=== PATIENT | male | born 1980 | race Two or more races ===

== ENCOUNTER 2017-02-05 16:08 | Emergency (ER) | payer BC ==
[2017-02-05 16:31] LABS: % BASOPHILS 0.4 % (0.0-2.0); % EOSINOPHILS 2.6 % (0.0-5.0); % LYMPHOCYTES 22.3 % (20.0-50.0); % MONOCYTES 8.3 % (2.0-10.0); % NEUTROPHILS 66.4 % (40.0-80.0); HEMATOCRIT 43.4 % (39.0-49.0); HEMOGLOBIN 14.5 gm/dL (13.2-17.3); MEAN CELL VOLUME 91.5 fl (80-99); MEAN CORPUSCULAR HEMOGLOBIN 30.5 pg (26.0-30.0); MEAN CORPUSCULAR HGB CONC 33.4 pg (28.0-36.0); MEAN PLATELET VOLUME 9.8 fl; NEUTROPHILE ABSOLUTE 5.2 Th/cmm (1.8-8.0); PLATELET COUNT 184 Th/cmm (150-400); RED BLOOD COUNT 4.74 Mil/cmm (4.30-5.70); RED CELL DISTRIBUTION WIDTH 12.5 % (11.5-20.0); WHITE BLOOD COUNT 7.9 Th/cmm (4.8-10.8)
[2017-02-05 16:34] LABS: ABG SOURCE Arterial; BE(B) 0.3 mEq/L (-3.0-3.0); FIO2 21; HCO3 25.1 mEq/L (20.0-26.0); pH 7.42 (7.35-7.45)
[2017-02-05 16:35] LABS: CRITICAL VALUES REPORTED BY SH
[2017-02-05 16:46] LABS: ALB/GLOB RATIO 1.5 (1.0-1.8); ALKALINE PHOSPHATASE 77 U/L (34-104); ANION GAP 8.6 (7.0-16.0); BILIRUBIN,TOTAL 0.4 mg/dL (0.3-1.0); BUN - UREA NITROGEN 16 mg/dL (7-25); CALCIUM SERUM 9.6 mg/dL (8.6-10.3); CARBON DIOXIDE 21.7 mEq/L (21.0-31.0); CHLORIDE 107 mEq/L (98-107); GLUCOSE 103 mg/dL (70-105); POTASSIUM SERUM 4.3 mEq/L (3.5-5.1); SGOT 22 U/L (13-39); SGPT/ALT 27 U/L (7-52); SODIUM SERUM 133 mEq/L (136-145)
[2017-02-05 16:47] LABS: CHOLESTEROL 192 mg/dL (<200); TRIGLYCERIDES 302 mg/dL (<150)
[2017-02-05 17:16] LABS: URINE BILIRUBIN NEGATIVE (NEGATIVE); URINE COLOR YELLOW; URINE GLUCOSE (UA) NEGATIVE (NEGATIVE); URINE KETONE NEGATIVE (NEGATIVE)
[2017-02-05 17:17] LABS: URINE BACTERIA OCCASIONAL /hpf (NONE SEEN); URINE BLOOD SMALL (NEGATIVE); URINE EPITHELIAL CELLS RARE /lpf (FEW); URINE PROTEIN NEGATIVE (NEGATIVE); URINE UROBILINOGEN 0.2 E.U./dL (0.2 - 1.0); URINE WBC 0-2 /hpf (0-5)
[2017-02-05] MEDS ORDERED: Albuterol/Ipratropium Neb 3 ML AERS HHN ONE (17:29)
[2017-02-05] MEDS: Albuterol/Ipratropium Neb 3 ML AERS HHN ONE (17:30)
--- NOTE | 2017-02-05 17:31 | ED Physician Chart ---
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 HE DENIES ASTHMA, PNEUMONIA AND BRONCHITIS. HE IS NOT A SMOKER BUT DRINKS ON OCCASION. HE DENIES HAVING ANY SERIOUS MEDICAL PROBLEMS. HE DENIES FEVER AND SORE THROAT BUT ADMITS TO CHEST CONGESTION AND COUGH. Allergies:: Allergies Allergy/AdvReac Type Severity Reaction Status Date / Time No Known Allergies Allergy Verified 02/05/17 16:20 Vitals:: Vital Signs - 8 hr 02/05/17 16:21 Temp 97.9 F HR 64 RR 15 BP 114/65 O2 Sat % 95 Historian:: Patient Review:: Nurse's Note Reviewed Review of Systems - Review of Systems General/Constitutional: No fever, No chills, No weight loss, No weakness, No diaphoresis, No edema, No loss of appetite Skin: No skin lesions, No rash, No bruising Head: No headache, No light-headedness Eyes: No loss of vision, No pain, No diplopia ENT: No earache, No nasal drainage, No sore throat, No tinnitus Neck: No neck pain, No swelling, No thyromegaly, No stiffness, No mass noted Cardio Vascular: No chest pain, No palpitations, No PND, No orthopnea, No edema Pulmonary: SOB, Cough, No sputum, Wheezing GI: Nausea, No vomiting, No diarrhea, No pain, No melena, No hematochezia, No constipation, No hematemesis G/U: No dysuria, No frequency, No hematuria Musculoskeletal: No bone or joint pain, No back pain, No muscle pain Endocrine: No polyuria, No polydipsia Psychiatric: No prior psych history, No depression, No anxiety, No suicidal ideation Hematopoietic: No bruising, No lymphadenopathy Allergic/Immuno: No urticaria, No angioedema Neurological: No syncope, No focal symptoms, No weakness, No paresthesia, No headache, No seizure, No dizziness, No confusion, No vertigo Past Medical History - Past Medical History Obtainable: Yes Past Medical History: No significant medical hx Family History: None Social History: Non Smoker, No Alcohol, No Drug Use Surgical History: None Psychiatricy History: None Medication: Reviewed Family Medical History - Family Member Mother History Unknown: Yes Physical Exam - Physical Examination General/Constitutional: Awake, Well-developed, well-nourished, Alert, No distress, GCS 15, Non-toxic appearing, Ambulatory Head: Atraumatic Eyes: Lids, conjuctiva normal, PERRL, EOMI Skin: Nl inspection, No rash, No skin lesions, No ecchymosis, Well hydrated, No lymphadenopathy ENMT: External ears, nose nl, Nasal exam nl, Lips, teeth, gums nl Neck: Nontender, Full ROM w/o pain, No JVD, No nuchal rigidity, No bruit, No mass, No stridor Respiratory: Nl effort/Exclusion Other Respiratory comments:: THERE ARE RHONCHI HEARD BILATERALLY Cardio Vascular: RRR, No murmur, gallop, rubs, NL S1 S2 GI: No tenderness/rebounding/guarding, No organomegaly, No hernia, Normal BS's, Nondistended, No mass/bruits, No McBurney tenderness : No CVA tenderness Extremities: No tenderness or effusion, Full ROM, normal strength in all extremities, No edema, Normal digits & nails Neuro/Psych: Alert/oriented, DTR's symmetric, Normal sensory exam, Normal motor strength, Judgement/insight normal, Mood normal, Normal gait, No focal deficits Misc: normal gait, Normal back, No paraspinal tenderness Labs/Radiology/EKG Results - Lab Results Results: Laboratory Tests 02/05/17 02/05/17 02/05/17 16:13 16:23 16:23 WBC 7.9 RBC 4.74 Hgb 14.5 Hct 43.4 MCV 91.5 MCH 30.5 H MCHC Differential 33.4 RDW 12.5 Plt Count 184 MPV 9.8 Neutrophils % 66.4 Lymphocytes % 22.3 Monocytes % 8.3 Eosinophils % 2.6 Basophils % 0.4 Specimen Source Arterial Sample Site RB pH 7.42 pCO2 38.0 pO2 71.0 L HCO3 25.1 Base Excess 0.3 O2 Saturation 94.0 Jhonathan Test NA Vent Rate NA Inspired O2 21 Tidal Volume NA PEEP NA Pressure (ins/psv/peep) NA Critical Value SH Sodium Potassium Chloride Carbon Dioxide Anion Gap BUN Creatinine Est GFR ( Amer) Est GFR (Non-Af Amer) BUN/Creatinine Ratio Glucose Calcium Total Bilirubin AST ALT Alkaline Phosphatase Troponin I Total Protein Albumin Globulin Albumin/Globulin Ratio Triglycerides 302 H Cholesterol 192 LDL Cholesterol Direct 136 HDL Cholesterol 40 Urine Source Urine Color Urine Clarity Urine pH Ur Specific [place] Urine Protein Urine Glucose (UA) Urine Ketones Urine Blood Urine Nitrate Urine Bilirubin Urine Urobilinogen Ur Leukocyte Esterase Urine RBC Urine WBC Ur Epithelial Cells Urine Bacteria 02/05/17 02/05/17 02/05/17 16:23 16:23 17:00 WBC RBC Hgb Hct MCV MCH MCHC Differential RDW Plt Count MPV Neutrophils % Lymphocytes % Monocytes % Eosinophils % Basophils % Specimen Source Sample Site pH pCO2 pO2 HCO3 Base Excess O2 Saturation Jhonathan Test Vent Rate Inspired O2 Tidal Volume PEEP Pressure (ins/psv/peep) Critical Value Sodium 133 L Potassium 4.3 Chloride 107 Carbon Dioxide 21.7 Anion Gap 8.6 BUN 16 Creatinine 1.0 Est GFR ( Amer) > 60.0 Est GFR (Non-Af Amer) > 60.0 BUN/Creatinine Ratio 16.0 Glucose 103 Calcium 9.6 Total Bilirubin 0.4 AST 22 ALT 27 Alkaline Phosphatase 77 Troponin I < 0.01 L Total Protein 7.8 Albumin 4.7 Globulin 3.1 Albumin/Globulin Ratio 1.5 Triglycerides Cholesterol LDL Cholesterol Direct HDL Cholesterol Urine Source CLEAN C Urine Color YELLOW Urine Clarity CLEAR Urine pH 6.0 Ur Specific [place] 1.030 Urine Protein NEGATIVE Urine Glucose (UA) NEGATIVE Urine Ketones NEGATIVE Urine Blood SMALL H Urine Nitrate NEGATIVE Urine Bilirubin NEGATIVE Urine Urobilinogen 0.2 Ur Leukocyte Esterase NEGATIVE Urine RBC 2-5 H Urine WBC 0-2 Ur Epithelial Cells RARE Urine Bacteria OCCASIONAL Assessment - Assessment General Assessment: BRONCHITIS HEMATURIA ED Septic Shock - . Is Septic Shock (SBP<90, OR Lactate>4 mmol\L) present?: No - <6hrs of presentation: Vital Signs: Vital Signs - 8 hr 02/05/17 16:21 Temp 97.9 F HR 64 RR 15 BP 114/65 O2 Sat % 95 Reassessment (Disposition) - Reassessment Reassessment Condition:: Improved - Diagnosis Diagnosis:: BRONCHITIS HEMATURIA - Aftercare/Follow up Instructions Aftercare/Follow-Up Instructions:: Counseled pt regarding lab results/diagnosis & need follow up, Refer to Discharge Instructions, Counseled pt & family regarding lab results/diagnosis & need follow up - Patient Disposition Discharge/Transfer:: Home Condition at Disposition:: Improved ED Discharge Plan - Patient Disposition Admit/Discharge/Transfer: PT DISCHARGED HOME Condition at Disposition: Improved
--- NOTE | 2017-02-06 10:21 | Diagnostic Imaging Report ---
CHEST X-RAY: AP view INDICATION: Cough COMPARISON: None FINDINGS: Slight increase left basal lung markings are noted. No focal consolidation or effusions. The heart is normal in size. The osseous structures demonstrate no acute abnormalities. IMPRESSION: Slight increase left basal lung markings likely due to subsegmental atelectasis. No focal consolidation identified.
== END 2017-02-05 18:15 | disposition home or self-care (01) ==
LOC: ER 16:08
DX: J40 Bronchitis, not specified as acute or chronic (principal); R31.9 Hematuria, unspecified
CPT/HCPCS: 99285; 96372 ×2; 82803; 36600; 94640; 93005; 71010; 84484; 36415; 84443; 86592; 85025; 81001; 80053; 80061; J0696; J2930